=== PATIENT | female | born 1960 | race American Indian/Alaskan Native ===

== ENCOUNTER 2017-06-15 11:40 | Outpatient (CLI) | payer BC, OTHER ==
--- NOTE | 2017-06-21 10:19 | Mammography Report ---
RIGHT DIGITAL DIAGNOSTIC MAMMOGRAM : 06/15/17 11:40:00 CLINICAL: Breast cancer survivor status post left mastectomy with TRAM reconstruction. COMPARISON:04/28/16 FINDINGS: Note that the left reconstructed breast was not imaged on this exam. The right breast is heterogeneously dense, which may obscure small masses.No mass, architectural distortion or suspicious calcifications. IMPRESSION: No mammographic evidence of malignancy. BI-RADS CATEGORY: 2 - - Benign RECOMMENDATION: Routine mammographic screening in one year. ACR BI-RADS MAMMOGRAPHIC CODES: 0 = Needs additional imaging evaluation; 1 = Negative; 2 = Benign; 3 = Probably benign; 4 = Suspicious; 5 = Malignant; 6 = Known biopsy-proven malignancy COMMENT: 1. Dense breast tissue, i.e., adenosis, fibrocystic changes, etc., may obscure an underlying neoplasm. 2. Approximately 10% of cancers are not detected with mammography. 3. A negative mammography report should not delay biopsy if a clinically suspicious mass is present. COMMENT: Patient follow-up letters are generated by our [employer] application.
== END 2017-06-15 11:41 | disposition home or self-care (01) ==
LOC: SPVWC 11:40
PROVIDERS: ATTEND Internal Medicine Hematology & Oncology
DX: R92.8 Other abnormal and inconclusive findings on diagnostic imaging of breast (principal); Z85.3 Personal history of malignant neoplasm of breast; Z90.12 Acquired absence of left breast and nipple
CPT/HCPCS: 77067; G0202; G0206-RT

== ENCOUNTER 2019-05-30 11:12 | Outpatient (CLI) | payer BC, OTHER ==
--- NOTE | 2019-06-02 12:39 | Mammography Report ---
DIGITAL SCREENING MAMMOGRAM WITH CAD, 05/30/2019 INDICATION: Routine screening mammography. Breast cancer survivor status post left mastectomy with TR AM reconstruction. TECHNIQUE: Digital right 2D mammography was obtained in the craniocaudal and mediolateral oblique pr ojections. This examination was interpreted with the benefit of Computer-Aided Detection analysis. COMPARISON: 05/30/2018 and 06/15/2017 FINDINGS: Breast Density: The breast is heterogeneously dense, which may obscure small masses. There is no evidence of dominant mass, suspicious calcifications or architectural distortion in the r ight breast. IMPRESSION: No mammographic evidence of malignancy. Follow up recommendation: Routine yearly BI-RADS Category 1: Negative. A "normal" or negative report should not discourage follow up or biopsy of a clinically significant f inding. A written summary of these findings will be mailed to the patient. The patient will be entered into a mammography reporting system which will generate a reminder letter for the patient's next appointmen t at the appropriate interval. The [employer] recommends yearly mammograms starting at age 40 and continuing as l nisreen as a woman is in good health. Breast MRI is recommended for women with an approximate 20-25% or greater lifetime risk of breast cancer, including women with a strong family history of breast or ova rao cancer or who have been treated for Hodgkin's disease. Signer Name: Tony De La Paz MD Signed: 06/02/2019 12:35 PM Workstation Name: [id number]
== END 2019-05-30 11:13 | disposition home or self-care (01) ==
LOC: SPVWC 11:12
PROVIDERS: ATTEND Internal Medicine Hematology & Oncology
DX: Z12.31 Encounter for screening mammogram for malignant neoplasm of breast (principal)
CPT/HCPCS: 77067

== ENCOUNTER 2019-07-11 11:24 | Outpatient (CLI) | payer BC, OTHER ==
--- NOTE | 2019-07-11 12:18 | XRay Report ---
LEFT HUMERUS 2 VIEWS INDICATION: ABNORMAL BONE SCAN. COMPARISON: No relevant comparison at this facility. IMPRESSION: The left humerus is intact. No evidence for fracture or suspicious bony lesion. Normal articulation at the shoulder and elbow. The soft tissues are unremarkable. Signer Name: Carlyle Sesay Jr, MD Signed: 07/11/2019 12:14 PM Workstation Name: [id number]
== END 2019-07-11 11:25 | disposition home or self-care (01) ==
LOC: SPVIMAG 11:24
PROVIDERS: ATTEND Internal Medicine Hematology & Oncology
DX: C50.212 Malignant neoplasm of upper-inner quadrant of left female breast (principal)

== ENCOUNTER 2020-06-03 11:17 | Outpatient (CLI) | payer BC, OTHER ==
--- NOTE | 2020-06-03 13:57 | Mammography Report ---
DIGITAL SCREENING MAMMOGRAM WITH CAD, 06/03/2020 CLINICAL INFORMATION / INDICATION: Routine screening mammography. TECHNIQUE: Digital right 2D mammography was obtained in the craniocaudal and mediolateral oblique pr ojections. This examination was interpreted with the benefit of Computer-Aided Detection analysis. COMPARISON: 05/30/2019, 05/30/2018 FINDINGS: Breast Density: The breasts are heterogeneously dense, which may obscure small masses. There is a new asymmetry seen on the MLO view only measuring 7.4 x 6.6 mm and located along the middl e depth of the right breast just above the nipple line. No other significant abnormality. IMPRESSION: Right breast asymmetry as above. A diagnostic right mammogram with spot compression views is recommended. Follow up recommendation: Special View: Spot BI-RADS Category 0: Incomplete. Needs additional imaging evaluation and/or prior mammograms for avni rison. A "normal" or negative report should not discourage follow up or biopsy of a clinically significant f inding. A written summary of these findings will be mailed to the patient. The patient will be entered into a mammography reporting system which will generate a reminder letter for the patient's next appointmen t at the appropriate interval. The [employer] recommends yearly mammograms starting at age 40 and continuing as l nisreen as a woman is in good health. Breast MRI is recommended for women with an approximate 20-25% or greater lifetime risk of breast cancer, including women with a strong family history of breast or ova rao cancer or who have been treated for Hodgkin's disease. Signer Name: Clinton Vasquez MD Signed: 06/03/2020 1:53 PM Workstation Name: [id number]
== END 2020-06-03 11:18 | disposition home or self-care (01) ==
LOC: SPVWC 11:17
PROVIDERS: ATTEND Internal Medicine Hematology & Oncology
DX: Z12.31 Encounter for screening mammogram for malignant neoplasm of breast (principal); C50.212 Malignant neoplasm of upper-inner quadrant of left female breast

== ENCOUNTER 2020-06-16 13:30 | Outpatient (CLI) | payer BC, OTHER ==
--- NOTE | 2020-06-16 14:31 | Mammography Report ---
DIGITAL DIAGNOSTIC MAMMOGRAM WITH CAD , 06/16/2020 CLINICAL INFORMATION / INDICATION: Recent abnormal screening mammogram. History of MALIGNANT NEOPLASM OF UPPER INNER QUAD OF LT BREAST TECHNIQUE: Digital right mammographic imaging was performed. Spot compression views were obtained. This examination was interpreted with the benefit of Computer-aided Detection analysis. COMPARISON: 06/03/2020, 05/30/2019, 05/30/2018 prior mammograms FINDINGS: Breast Density: The breasts are heterogeneously dense, which may obscure small masses. No dominant mass, suspicious calcifications or architectural distortion in the right breast. Spot compression views of the new focal asymmetry in the right breast completely resolves with spot c ompression. IMPRESSION: No mammographic evidence of malignancy. Follow up recommendation: Routine yearly BI-RADS Category 2: Benign. A "normal" or negative report should not discourage follow up or biopsy of a clinically significant f inding. A written summary of these findings will be mailed to the patient. The patient will be entered into a mammography reporting system which will generate a reminder letter for the patient's next appointmen t at the appropriate interval. According to the [employer], yearly mammograms are recommended starting at age 40 and continuing as long as a woman is in good health. Breast MRI is recommended for women with an renata roximately 20-25% or greater lifetime risk of breast cancer, including women with a strong family his tory of breast or ovarian cancer and women who have been treated for Hodgkin's disease. Signer Name: Samantha Wilson MD Signed: 06/16/2020 2:27 PM Workstation Name: [id number]
== END 2020-06-16 13:31 | disposition home or self-care (01) ==
LOC: SPVWC 13:30
PROVIDERS: ATTEND Internal Medicine Hematology & Oncology
DX: C50.212 Malignant neoplasm of upper-inner quadrant of left female breast (principal)

== ENCOUNTER 2020-12-10 10:15 | Outpatient (CLI) | payer BC, OTHER ==
--- NOTE | 2020-12-10 11:29 | Mammography Report ---
DEXA BONE DENSITY SCAN INDICATION / CLINICAL INFORMATION: MENOPAUSAL/POSTMENOPAUSAL/ ON AROMATASE THERAPY. 60 years Female COMPARISON: 10/01/2015 LUMBAR SPINE, L2-L4: - Bone mineral density (BMD) = 0.948 g/cm2. - T-score = -2.2 - Z-score = -0.6 Change (%) since most recent prior (if available): 8.7% decrease RIGHT HIP, NECK : - Bone mineral density (BMD) = 0.776 g/cm2. - T-score = -1.2 - Z-score = -0.2 Change (%) since most recent prior (if available): 9.0% decrease IMPRESSION: 1. WHO Classification: Osteopenia. Fracture Risk: Increased. Note: 10-Year Fracture Risk (FRAX) not reported. This DEXA unit lacks FRAX functionality. BMD Reporting Guidelines (ISCD, 2015) BMD Reporting in Postmenopausal Women and in Men Age 50 and Older - T-scores are preferred. - The WHO densitometric classification is applicable. BMD Reporting in Females Prior to Menopause and in Males Younger Than Age 50 - Z-scores, not T-scores, are preferred. This is particularly important in children. - A Z-score of -2.0 or lower is defined as below the expected range for age, and a Z-score above -2.0 is within the expected range for age. - Osteoporosis cannot be diagnosed in men under age 50 on the basis of BMD alone. - The WHO diagnostic criteria may be applied to women in the menopausal transition. http://www.iscd.org/official-positions/5091-rckn-hmnjhrpk-positions-adult/ Signer Name: Tres Weber MD Signed: 12/10/2020 11:25 AM Workstation Name: [id number]
== END 2020-12-10 10:16 | disposition home or self-care (01) ==
LOC: SPVWC 10:15
PROVIDERS: ATTEND Internal Medicine Hematology & Oncology
DX: Z13.820 Encounter for screening for osteoporosis (principal); C50.212 Malignant neoplasm of upper-inner quadrant of left female breast; Z79.811 Long term (current) use of aromatase inhibitors; Z78.0 Asymptomatic menopausal state
CPT/HCPCS: 77080

== ENCOUNTER 2021-07-27 10:16 | Outpatient (CLI) | payer BC, OTHER | END 2021-07-27 10:17 | disposition home or self-care (01) | LOC: SPVWC 10:16 | PROVIDERS: ATTEND Internal Medicine Hematology & Oncology | DX: Z12.31 Encounter for screening mammogram for malignant neoplasm of breast (principal) ==